=== PATIENT | male | born 1950 | race Caucasian/White ===

== ENCOUNTER 2019-06-17 02:06 | Inpatient (IN) ==
[2019-06-17] MEDS ORDERED: MORPHINE 4 MG/1 ML VIAL IV STA (02:13)
[2019-06-17] MEDS ORDERED: NITROGLYCERIN 2% OINT 1 INCH/GM PACK TOP STA (02:13)
[2019-06-17] MEDS ORDERED: ONDANSETRON 4 MG/2 ML VIAL IV STA (02:13)
[2019-06-17] MEDS ORDERED: ASPIRIN 325 MG TABLET PO STA (02:13)
[2019-06-17] MEDS ORDERED: METOPROLOL TARTRATE 5 MG/5 ML VIAL IV STA (02:40)
[2019-06-17] MEDS ORDERED: ENOXAPARIN 100 MG/ML SYRINGE SUBCUT STA (02:40)
[2019-06-17 02:48] LABS: Albumin 3.7 G/DL (3.4-5.0); Bilirubin,Total 0.6 MG/DL (0.2-1.0); Calcium 9.3 MG/DL (8.5-10.1); Osmolality,Calculated 278.7 MOS/KG (273-304); Total Protein 7.6 G/DL (6.4-8.3)
[2019-06-17 02:57] LABS: Basophils # 0.1 10*3/uL (0.0-0.2); Basophils % 1.2 % (0.0-0.8); Eosinophils # 0.2 10*3/uL (0.0-0.87); Eosinophils % 2.8 % (0.00-10.9); Hematocrit 45.3 VOL% (42.0-52.0); Hemoglobin 15.2 GM/DL (14.0-18.0); Immature Granulocytes % 0.3 %; Immature Granulocytes Absolute 0.02 #; Lymphocytes # 2.7 10*3/uL (1.4-4.0); Mean Corpuscular HGB Conc 33.6 GM/DL (32-36); Mean Corpuscular Volume 96.2 FL (87-102); Mean Platelet Volume 10.5 FL (9.6-12.0); Monocytes % 12.4 % (1.7-12.7); Neutrophils % 42.3 % (38.7-73.9); Platelet Count 205 T/CUMM (130-400); Red Blood Count 4.71 MC/CUMM (3.8-5.5); White Blood Count 6.7 T/CUMM (4-12)
[2019-06-17 03:08] LABS: Apearance,Urine CLEAR (Clear); Bilirubin,Urine Negative (Negative); Blood, Urine Negative (Negative); Glucose,Urine (UA) Negative (Negative); Ketones,Urine 5 mg/dL (Negative); Mucus,Urine Occasional /LPF (Occasional); Nitrite,Urine Negative (Negative); Protein,Urine 100 MG/DL; RBC,Urine <1 /HPF (0-4); Urine Color Yellow (Yellow); Urine Specific Gravity 1.027 (1.001-1.035); Urine Urobilinogen < 2.0 EU/DL (0.2-1.0); WBC,Urine <1 /HPF (0-6)
[2019-06-17 03:08] LABS: PT Patient Result 10.5 SECS (9.8-11.9); Partial Thromboplastin Time 29.9 SECS (23.9-33.8)
[2019-06-17 03:33] LABS: Barbiturates Screen,Urine Negative (Negative); Benzodiazepines Screen,Urine Negative (Negative); Cannabinoid Screen,Urine Positive (Negative); Opiate Screen,Urine Negative (Negative); Phencyclidine Screen,Urine Negative (Negative)
[2019-06-17] MEDS ORDERED: ACETAMINOPHEN 325 MG TABLET PO PRN (03:56)
[2019-06-17] MEDS ORDERED: ONDANSETRON 4 MG/2 ML VIAL IV PRN (03:56)
[2019-06-17] MEDS ORDERED: MORPHINE 4 MG/1 ML VIAL IV PRN (03:56)
[2019-06-17] MEDS: SODIUM CHLORIDE 0.9% 1,000 ML IV SCH ×2 (04:12→18:51)
[2019-06-17] MEDS: NITROGLYCERIN 2% OINT 1 INCH/GM PACK TOP SCH ×2 (05:57→12:03)
[2019-06-17 07:09] LABS: Basophils # 0.1 10*3/uL (0.0-0.2); Basophils % 1.1 % (0.0-0.8); Eosinophils # 0.1 10*3/uL (0.0-0.87); Eosinophils % 1.9 % (0.00-10.9); Hematocrit 40.5 VOL% (42.0-52.0); Hemoglobin 13.9 GM/DL (14.0-18.0); Immature Granulocytes % 0.2 %; Immature Granulocytes Absolute 0.01 #; Lymphocytes # 1.8 10*3/uL (1.4-4.0); Lymphocytes % 34.2 % (21.2-54.2); Mean Corpuscular HGB Conc 34.3 GM/DL (32-36); Mean Corpuscular Volume 93.3 FL (87-102); Mean Platelet Volume 10.4 FL (9.6-12.0); Monocytes % 8.7 % (1.7-12.7); Neutrophils % 53.9 % (38.7-73.9); Platelet Count 170 T/CUMM (130-400); Red Blood Count 4.34 MC/CUMM (3.8-5.5); White Blood Count 5.3 T/CUMM (4-12)
[2019-06-17 08:49] LABS: Albumin 3.3 G/DL (3.4-5.0); Bilirubin,Total 0.7 MG/DL (0.2-1.0); Calcium 8.6 MG/DL (8.5-10.1); Osmolality,Calculated 274.8 MOS/KG (273-304); Risk Ratio 5.94; Total Protein 6.6 G/DL (6.4-8.3); VLDL CHOLESTEROL 47.8 MG/DL
[2019-06-17] MEDS ORDERED: ASPIRIN EC 325 MG TABLET PO SCH (09:00)
[2019-06-17] MEDS ORDERED: LOSARTAN 50 MG TABLET PO SCH (09:00)
[2019-06-17] MEDS ORDERED: MAGNESIUM SULF RIDER 2 GM in PREMIX 1 EACH IV PRN (10:10)
[2019-06-17] MEDS ORDERED: diphenhydrAMINE CAP 25 MG CAPSULE PO ONE (10:10)
[2019-06-17] MEDS ORDERED: DIAZEPAM 5 MG TABLET PO ONE (10:10)
[2019-06-17] MEDS ORDERED: POTASSIUM CHLORIDE RIDER 10 MEQ in PREMIX 1 EACH IV PRN (10:10)
[2019-06-17] MEDS: DOCUSATE SODIUM 100 MG CAPSULE PO SCH ×2 (10:59→22:07)
[2019-06-17] MEDS: PANTOPRAZOLE 40 MG TABLET PO SCH (11:00)
[2019-06-17] MEDS: TAMSULOSIN 0.4 MG CAPSULE PO SCH ×2 (11:00→22:07)
[2019-06-17] MEDS ORDERED: LIDOCAINE 1% 20 ML VIAL ONE (11:49)
[2019-06-17] MEDS ORDERED: HEPARIN/NACL 0.9% 2 UNITS/ML 1,000 ML IV ONE (11:49)
[2019-06-17 11:51] LABS: CKMB % 0.5 %
[2019-06-17 11:57] LABS: Troponin I 1.97 NG/ML (0.00-0.045)
[2019-06-17] MEDS ORDERED: HYDROmorphone 2 MG/1 ML VIAL ONE (12:04)
[2019-06-17] MEDS ORDERED: MIDAZOLAM 2 MG/2 ML VIAL ONE (12:04)
[2019-06-17] MEDS ORDERED: NITROGLYCERIN DRIP 50 MG/250 ML BOTTLE IV ONE (12:07)
[2019-06-17] MEDS ORDERED: VERAPAMIL 5 MG/2 ML VIAL ONE (12:07)
[2019-06-17] MEDS ORDERED: ENOXAPARIN 30 MG/0.3 ML SYRINGE ONE (12:13)
[2019-06-17] MEDS ORDERED: TICAGRELOR 90 MG TABLET ONE (12:22)
[2019-06-17] MEDS ORDERED: NITROGLYCERIN SL 0.4 MG TABLET SL PRN (12:59)
[2019-06-17] MEDS ORDERED: ENOXAPARIN 100 MG/ML SYRINGE SUBCUT SCH (18:00)
[2019-06-17] MEDS ORDERED: ROSUVASTATIN 20 MG TABLET PO SCH (21:00)
[2019-06-17] MEDS: TICAGRELOR 90 MG TABLET PO SCH (22:07)
[2019-06-17] MEDS: NABUMETONE 500 MG TABLET PO SCH (22:07)
[2019-06-17] MEDS: carvediloL 3.125 MG TABLET PO SCH (22:07)
[2019-06-18 06:49] LABS: Basophils # 0.1 10*3/uL (0.0-0.2); Basophils % 1.1 % (0.0-0.8); Eosinophils # 0.1 10*3/uL (0.0-0.87); Eosinophils % 2.5 % (0.00-10.9); Hematocrit 41.2 VOL% (42.0-52.0); Hemoglobin 14.1 GM/DL (14.0-18.0); Immature Granulocytes % 0.2 %; Immature Granulocytes Absolute 0.01 #; Lymphocytes # 1.6 10*3/uL (1.4-4.0); Lymphocytes % 27.4 % (21.2-54.2); Mean Corpuscular HGB Conc 34.2 GM/DL (32-36); Mean Corpuscular Volume 93.6 FL (87-102); Mean Platelet Volume 10.2 FL (9.6-12.0); Monocytes % 10.7 % (1.7-12.7); Neutrophils % 58.1 % (38.7-73.9); Platelet Count 162 T/CUMM (130-400); Red Cell Distribution Width 11.9 % (9.3-17.3); White Blood Count 5.7 T/CUMM (4-12)
[2019-06-18 07:18] LABS: Bilirubin,Total 0.7 MG/DL (0.2-1.0); Osmolality,Calculated 274.8 MOS/KG (273-304); Total Protein 6.4 G/DL (6.4-8.3)
[2019-06-18 07:49] VITALS: BP 149/91
[2019-06-18] MEDS ORDERED: SODIUM CHLORIDE 0.9% 1,000 ML IV PRN (08:07)
[2019-06-18] MEDS: TICAGRELOR 90 MG TABLET PO SCH (08:28)
[2019-06-18] MEDS: DOCUSATE SODIUM 100 MG CAPSULE PO SCH (08:29)
[2019-06-18] MEDS: TAMSULOSIN 0.4 MG CAPSULE PO SCH (08:29)
[2019-06-18] MEDS: NABUMETONE 500 MG TABLET PO SCH (08:29)
[2019-06-18] MEDS: PANTOPRAZOLE 40 MG TABLET PO SCH (08:29)
[2019-06-18] MEDS: carvediloL 3.125 MG TABLET PO SCH (08:29)
[2019-06-18] MEDS ORDERED: ENOXAPARIN 40 MG/0.4 ML SYRINGE SUBCUT SCH (09:00)
[2019-06-18] MEDS ORDERED: ASPIRIN EC 81 MG TABLET PO SCH (09:00)
[2019-06-18] MEDS ORDERED: LOSARTAN 50 MG TABLET PO SCH (09:00)
[2019-06-18] MEDS ORDERED: BACLOFEN 10 MG TABLET PO SCH (09:00)
== END 2019-06-18 10:50 | disposition home or self-care (01) | DRG 247 ==
LOC: N.ED 02:06 → N.EDINP 03:03 → N.TELEN 03:43
PROVIDERS: ADMIT Family Medicine; ATTEND Family Medicine
PROC: CLCCHCL (ICD-10-PCS; 2019-06-17 11:45)